=== PATIENT | female | born 1990 | race Caucasian/White ===

== ENCOUNTER → 2020-07-21 11:22 | Outpatient (BNVA) | payer OTHER, SELFPAY | PROVIDERS: Visit Provider Internal Medicine | DX: F11.20 Opioid dependence, uncomplicated (principal) | CPT/HCPCS: 80305 ==

== ENCOUNTER → 2020-08-18 11:50 | Outpatient (BNVA) | payer OTHER, SELFPAY | PROVIDERS: Visit Provider Internal Medicine | DX: Z76.89 Persons encountering health services in other specified circumstances (principal) ==

== ENCOUNTER → 2020-09-15 10:55 | Outpatient (BNVA) | payer OTHER, SELFPAY | PROVIDERS: PCP Nurse Practitioner Family; Visit Provider Internal Medicine | DX: Z76.89 Persons encountering health services in other specified circumstances (principal) ==

== ENCOUNTER → 2020-10-13 11:08 | Outpatient (BNVA) | payer OTHER, SELFPAY | PROVIDERS: PCP Nurse Practitioner Family; Visit Provider Internal Medicine ==

== ENCOUNTER → 2020-11-07 11:31 | Outpatient (BNVA) | payer OTHER, SELFPAY | PROVIDERS: PCP Nurse Practitioner Family; Visit Provider Internal Medicine ==

== ENCOUNTER 2020-12-05 11:01 | Outpatient (REF) | payer OTHER, SELFPAY ==
[2020-12-05 16:10] LABS: Syphilis Screen Nonreactive (Nonreactive)
[2020-12-06 13:16] LABS: CT PCR NOT DETECTED (Not Detect.); NG PCR NOT DETECTED (Not Detect.)
[2020-12-10 07:58] LABS: HIV AB/AG Nonreactive (Nonreactive); HIV Num 1 0.06 S/CO (0.00-0.99)
[2020-12-10 08:21] LABS: ~HepC Num1 0.11 S/CO (0.00-0.79); ~Hepatitis C Antibody Nonreactive (Nonreactive)
== END 2020-12-05 11:02 | disposition home or self-care (01) ==
LOC: HO.LAB 11:01
PROVIDERS: PCP Nurse Practitioner Family; Visit Provider Internal Medicine
DX: F11.99 Opioid use, unspecified with unspecified opioid-induced disorder (principal); Z77.21 Contact with and (suspected) exposure to potentially hazardous body fluids; Z51.81 Encounter for therapeutic drug level monitoring; Z79.899 Other long term (current) drug therapy
CPT/HCPCS: 36415; 80305; 86780; 86803; 87389; 87491; 87591

== ENCOUNTER → 2021-01-02 11:06 | Outpatient (BNVA) | payer OTHER, SELFPAY | PROVIDERS: PCP Nurse Practitioner Family; Visit Provider Internal Medicine | DX: Z51.81 Encounter for therapeutic drug level monitoring (principal); F11.90 Opioid use, unspecified, uncomplicated | CPT/HCPCS: 80305 ==

== ENCOUNTER → 2021-01-30 11:19 | Outpatient (BNVA) | payer OTHER, SELFPAY | PROVIDERS: Visit Provider Internal Medicine | DX: Z51.81 Encounter for therapeutic drug level monitoring (principal) ==

== ENCOUNTER → 2021-02-27 11:13 | Outpatient (BNVA) | payer OTHER, SELFPAY | PROVIDERS: Visit Provider Internal Medicine | DX: Z51.81 Encounter for therapeutic drug level monitoring (principal) | CPT/HCPCS: 80305 ==

== ENCOUNTER → 2021-03-20 11:05 | Outpatient (BNVA) | payer OTHER, SELFPAY | PROVIDERS: Visit Provider Internal Medicine | DX: F11.99 Opioid use, unspecified with unspecified opioid-induced disorder (principal) | CPT/HCPCS: 80305 ==

== ENCOUNTER → 2021-04-17 10:42 | Outpatient (BNVA) | payer OTHER, SELFPAY | PROVIDERS: Visit Provider Internal Medicine | DX: Z51.81 Encounter for therapeutic drug level monitoring (principal) | CPT/HCPCS: 80305 ==

== ENCOUNTER → 2021-05-15 11:38 | Outpatient (BNVA) | payer OTHER, SELFPAY | PROVIDERS: Visit Provider Internal Medicine | DX: F11.20 Opioid dependence, uncomplicated (principal) | CPT/HCPCS: 80305 ==

== ENCOUNTER → 2021-06-12 11:50 | Outpatient (BNVA) | payer OTHER, SELFPAY | PROVIDERS: Visit Provider Internal Medicine | DX: F11.20 Opioid dependence, uncomplicated (principal); Z51.81 Encounter for therapeutic drug level monitoring; Z79.899 Other long term (current) drug therapy | CPT/HCPCS: 80305 ==

== ENCOUNTER → 2021-07-10 11:22 | Outpatient (BNVA) | payer OTHER, SELFPAY | PROVIDERS: Visit Provider Internal Medicine | DX: Z51.81 Encounter for therapeutic drug level monitoring (principal); F11.90 Opioid use, unspecified, uncomplicated | CPT/HCPCS: 80305 ==

== ENCOUNTER → 2021-08-07 14:35 | Outpatient (BNVA) | payer OTHER, SELFPAY | PROVIDERS: Visit Provider Internal Medicine | DX: Z51.81 Encounter for therapeutic drug level monitoring (principal); F11.90 Opioid use, unspecified, uncomplicated | CPT/HCPCS: 80305 ==

== ENCOUNTER → 2021-09-04 12:01 | Outpatient (BNVA) | payer OTHER, SELFPAY | PROVIDERS: Visit Provider Internal Medicine | DX: Z51.81 Encounter for therapeutic drug level monitoring (principal); F11.20 Opioid dependence, uncomplicated | CPT/HCPCS: 80305 ==

== ENCOUNTER → 2021-10-02 12:58 | Outpatient (BNVA) | payer OTHER, SELFPAY | PROVIDERS: Visit Provider Internal Medicine | DX: Z51.81 Encounter for therapeutic drug level monitoring (principal); F11.20 Opioid dependence, uncomplicated | CPT/HCPCS: 80305 ==

== ENCOUNTER → 2021-11-06 13:24 | Outpatient (BNVA) | payer OTHER, SELFPAY | PROVIDERS: Visit Provider Internal Medicine | DX: Z51.81 Encounter for therapeutic drug level monitoring (principal); F11.20 Opioid dependence, uncomplicated | CPT/HCPCS: 80305 ==

== ENCOUNTER → 2021-12-04 11:48 | Outpatient (BNVA) | payer OTHER, SELFPAY | PROVIDERS: Visit Provider Internal Medicine | DX: Z51.81 Encounter for therapeutic drug level monitoring (principal); F11.20 Opioid dependence, uncomplicated | CPT/HCPCS: 80305 ==

== ENCOUNTER → 2022-01-05 14:41 | Outpatient (BNVA) | payer OTHER, SELFPAY | PROVIDERS: Visit Provider Internal Medicine | DX: Z51.81 Encounter for therapeutic drug level monitoring (principal); F11.20 Opioid dependence, uncomplicated | CPT/HCPCS: 80305 ==

== ENCOUNTER → 2022-02-02 14:22 | Outpatient (BNVA) | payer OTHER, SELFPAY | PROVIDERS: Visit Provider Internal Medicine | DX: Z51.81 Encounter for therapeutic drug level monitoring (principal); F11.20 Opioid dependence, uncomplicated | CPT/HCPCS: 80305 ==

== ENCOUNTER → 2022-03-02 14:25 | Outpatient (BNVA) | payer OTHER, SELFPAY | PROVIDERS: Visit Provider Internal Medicine | DX: Z51.81 Encounter for therapeutic drug level monitoring (principal); F11.20 Opioid dependence, uncomplicated | CPT/HCPCS: 80305 ==

== ENCOUNTER 2022-03-02 17:01 | Outpatient (REF) | payer OTHER, SELFPAY ==
[2022-03-07 07:18] LABS: Codeine, Ur 458
[2022-03-07 07:19] LABS: Hydrocodone, Ur NEGATIVE; Hydromorphone, Ur NEGATIVE; Morphine, Ur NEGATIVE; Norhydrocodone, Ur NEGATIVE; Noroxycodone, Ur NEGATIVE; Oxycodone, Ur NEGATIVE; Oxymorphone, Ur NEGATIVE
== END 2022-03-02 17:02 | disposition home or self-care (01) ==
LOC: HO.LNP 17:01
PROVIDERS: Visit Provider Internal Medicine
DX: F11.99 Opioid use, unspecified with unspecified opioid-induced disorder (principal)
CPT/HCPCS: 80364; 80365

== ENCOUNTER → 2022-04-01 14:15 | Outpatient (BNVA) | payer OTHER, SELFPAY | PROVIDERS: PCP Student in an Organized Health Care Education/Training Program; Visit Provider Internal Medicine | DX: Z51.81 Encounter for therapeutic drug level monitoring (principal); F11.20 Opioid dependence, uncomplicated | CPT/HCPCS: 80305 ==

== ENCOUNTER → 2022-09-29 13:33 | Outpatient (BNVA) | payer OTHER, SELFPAY | PROVIDERS: PCP Student in an Organized Health Care Education/Training Program; Visit Provider Nurse Practitioner Psychiatric/Mental Health | DX: F11.20 Opioid dependence, uncomplicated (principal); Z51.81 Encounter for therapeutic drug level monitoring; Z79.899 Other long term (current) drug therapy | CPT/HCPCS: 80305 ==

== ENCOUNTER 2022-10-25 13:30 | Outpatient (REF) | payer OTHER, SELFPAY ==
[2022-10-25 15:06] LABS: Alanine Aminotransferase 27 U/L (0-31); Albumin Level 3.8 g/dL (3.5-5.0); Alkaline Phosphatase 68 U/L (39-117); Aspartate Amino Transferase 25 U/L (5-31); Bilirubin Direct < 0.2 mg/dL (0.0-0.5); Bilirubin Total 0.4 mg/dL (0.0-1.0); Total Protein 6.6 g/dL (6.5-8.0)
== END 2022-10-25 13:31 | disposition home or self-care (01) ==
LOC: HO.LAB 13:30
PROVIDERS: PCP Student in an Organized Health Care Education/Training Program; Visit Provider Nurse Practitioner Psychiatric/Mental Health
DX: F11.20 Opioid dependence, uncomplicated (principal); Z51.81 Encounter for therapeutic drug level monitoring; Z79.899 Other long term (current) drug therapy
CPT/HCPCS: 36415; 80076; 80305

== ENCOUNTER → 2022-11-22 13:50 | Outpatient (BNVA) | payer OTHER, SELFPAY | PROVIDERS: PCP Student in an Organized Health Care Education/Training Program; Visit Provider Nurse Practitioner Psychiatric/Mental Health | DX: Z51.81 Encounter for therapeutic drug level monitoring (principal); F11.99 Opioid use, unspecified with unspecified opioid-induced disorder ==

== ENCOUNTER → 2023-01-17 13:42 | Outpatient (BNVA) | payer OTHER, SELFPAY | PROVIDERS: PCP Student in an Organized Health Care Education/Training Program; Visit Provider Nurse Practitioner Psychiatric/Mental Health | DX: Z13.89 Encounter for screening for other disorder (principal) ==

== ENCOUNTER → 2023-03-14 13:42 | Outpatient (BNVA) | payer OTHER, SELFPAY | PROVIDERS: PCP Student in an Organized Health Care Education/Training Program; Visit Provider Nurse Practitioner Psychiatric/Mental Health | DX: Z51.81 Encounter for therapeutic drug level monitoring (principal); F11.20 Opioid dependence, uncomplicated | CPT/HCPCS: 80305 ==

== ENCOUNTER 2023-04-11 11:17 | Outpatient (AMB) | payer OTHER, SELFPAY ==
[2023-04-11 11:25] VITALS: BP 110/80; PULSE 74; O2SAT 99
--- NOTE | 2023-04-11 11:25 | A.OFFVIS_ITS ---
Intake Vital Signs 04/11/23 11:25 BP 110/80 Blood Pressure Location Lt brachial Position Sitting Pulse 74 Pulse Oximetry (%) 99 Intake Visit Reasons: MAT Visit Allergies No Known Allergies Allergy (Verified 03/14/23 13:45) HPI MAT Visit HPI Details Patient presents for follow-up. Continues to do well with current Suboxone dose. Last prescription picked up on March 20. Denies any questions or concerns at this time. Would like to remain on current Suboxone dose. [facility] Medical History Exposure to blood-borne pathogen Hemorrhoid Opioid use disorder Surgical History H/O breast augmentation Social History Household Members: None Housing: Apartment Alcohol intake: current Alcohol intake frequency: holidays/special occasions only Patient Tobacco Use Status: Current someday Tobacco user Tobacco use type: Cigarette Cigarettes Per Day: 2 e-Cigarette/Vaping Use: Currently Using Review of Systems Const Reports as per HPI and Reports no additional complaints Physical Exam Vital Signs: Last Vital Signs Pulse 74 04/11/23 11:25 BP 110/80 04/11/23 11:25 Pulse Ox 99 04/11/23 11:25 Const General: cooperative, healthy appearing, no acute distress and alert Nutritional Appearance: average body habitus Orientation/consciousness: patient oriented x3 Limitations: no limitations Neuro General: patient oriented x3 Psych Appearance: grossly normal Mental Status: mental status grossly normal Speech and movement: Normal speech and movement present Affect: normal affect Attitude: cooperative Thought process: Normal thought process present Thought content: Normal thought content present Insight: Good insight present (Psych) Judgement: Good judgement present (Psych) Assessment & Plan Assessment & Plan (1) Opioid use disorder: Code(s): F11.99 - Opioid use, unspecified with unspecified opioid-induced disorder Plan: * Continue Suboxone at current dose * Follow-up as scheduled Coding Level of Care Code Est Pt Level 3 (79887) Diagnoses Opioid use disorder F11.99
== END 2023-04-11 11:38 | disposition home or self-care (01) ==
LOC: HO.HCC 11:17
PROVIDERS: PCP Family Medicine; Visit Provider Nurse Practitioner Psychiatric/Mental Health
DX: F11.99 Opioid use, unspecified with unspecified opioid-induced disorder (principal)
CPT/HCPCS: 99213

== ENCOUNTER → 2023-04-11 11:17 | Outpatient (BNVA) | payer OTHER, SELFPAY | PROVIDERS: PCP Family Medicine; Visit Provider Nurse Practitioner Psychiatric/Mental Health | DX: Z51.81 Encounter for therapeutic drug level monitoring (principal) ==

== ENCOUNTER 2023-05-16 11:24 | Outpatient (AMB) | payer OTHER, SELFPAY ==
--- NOTE | 2023-05-16 11:25 | A.OFFVIS_ITS ---
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: No Allergies No Known Allergies Allergy (Verified 05/16/23 11:32) Do you need a note to return to daycare/school/sports/work: No HPI MAT Visit HPI Details Pt presents for OUD treatment follow up Currently being prescribed Suboxone 8mg QD---has been taking dose in the evenings as she finds she forgets less at this time Denies any side effects related to medication No questions or concerns at this time [facility] Medical History Exposure to blood-borne pathogen Hemorrhoid Opioid use disorder Surgical History H/O breast augmentation Social History Household Members: None Housing: Apartment Alcohol intake: current Alcohol intake frequency: holidays/special occasions only Patient Tobacco Use Status: Current someday Tobacco user Tobacco use type: Cigarette Cigarettes Per Day: 2 e-Cigarette/Vaping Use: Currently Using Review of Systems Const Reports as per HPI Physical Exam Vital Signs: Last Vital Signs Pulse 67 05/16/23 11:31 BP 122/84 05/16/23 11:31 Pulse Ox 98 05/16/23 11:31 Oxygen Delivery Method Room Air 05/16/23 11:31 Const General: cooperative, healthy appearing, no acute distress and alert Nutritional Appearance: average body habitus Orientation/consciousness: patient oriented x3 Limitations: no limitations Neuro General: patient oriented x3 Psych Appearance: grossly normal Mental Status: mental status grossly normal Speech and movement: Normal speech and movement present Affect: normal affect Attitude: cooperative Thought process: Normal thought process present Thought content: Normal thought content present Insight: Good insight present (Psych) Judgement: Good judgement present (Psych) Assessment & Plan Assessment & Plan (1) Opioid use disorder: Code(s): F11.99 - Opioid use, unspecified with unspecified opioid-induced disorder Plan: * Continue Suboxone at current dose--refill not yet due * Follow-up as scheduled Coding Level of Care Code Est Pt Level 3 (72902) Diagnoses Opioid use disorder F11.99
[2023-05-16 11:31] VITALS: BP 122/84; PULSE 67; O2SAT 98
== END 2023-05-16 11:50 | disposition home or self-care (01) ==
LOC: HO.HCC 11:24
PROVIDERS: PCP Family Medicine; Visit Provider Nurse Practitioner Psychiatric/Mental Health
DX: F11.99 Opioid use, unspecified with unspecified opioid-induced disorder (principal)
CPT/HCPCS: 99213

== ENCOUNTER → 2023-05-16 11:24 | Outpatient (BNVA) | payer OTHER, SELFPAY | PROVIDERS: PCP Family Medicine; Visit Provider Nurse Practitioner Psychiatric/Mental Health | DX: Z51.81 Encounter for therapeutic drug level monitoring (principal) ==

== ENCOUNTER 2023-07-07 11:20 | Outpatient (AMB) | payer OTHER, SELFPAY ==
--- NOTE | 2023-07-07 11:21 | A.OFFVIS_ITS ---
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 No questions or concerns at this time [facility] Medical History Exposure to blood-borne pathogen Hemorrhoid Opioid use disorder Surgical History H/O breast augmentation Social History Household Members: None Housing: Apartment Alcohol intake: current Alcohol intake frequency: holidays/special occasions only Patient Tobacco Use Status: Current someday Tobacco user Tobacco use type: Cigarette Cigarettes Per Day: 2 e-Cigarette/Vaping Use: Currently Using Review of Systems Const Reports as per HPI and Reports no additional complaints Physical Exam Vital Signs: Last Vital Signs Pulse 85 07/07/23 11:24 BP 124/72 07/07/23 11:24 Pulse Ox 97 07/07/23 11:24 Oxygen Delivery Method Room Air 07/07/23 11:24 Const General: cooperative, healthy appearing, no acute distress and alert Nutritional Appearance: average body habitus Orientation/consciousness: patient oriented x3 Limitations: no limitations Neuro General: patient oriented x3 Psych Appearance: grossly normal Mental Status: mental status grossly normal Speech and movement: Normal speech and movement present Affect: normal affect Attitude: cooperative Thought process: Normal thought process present Thought content: Normal thought content present Insight: Good insight present (Psych) Judgement: Good judgement present (Psych) Assessment & Plan Assessment & Plan (1) Opioid use disorder: Code(s): F11.99 - Opioid use, unspecified with unspecified opioid-induced disorder Plan: * Continue Suboxone at current dose * Follow-up as scheduled (2 months) Medications: Refilled buprenorphine-naloxone 8-2 mg 1 film sublingual DAILY 30 ea 1RF Belem Pineda, ROCHELLE buprenorphine-naloxone 8-2 mg 1 film sublingual DAILY 30 ea 1RF Sue Powell NP Coding Level of Care Code Est Pt Level 3 (06415) Diagnoses Opioid use disorder F11.99
[2023-07-07 11:24] VITALS: BP 124/72; PULSE 85; O2SAT 97
== END 2023-07-07 11:44 | disposition home or self-care (01) ==
PROVIDERS: PCP Family Medicine; Visit Provider Nurse Practitioner Psychiatric/Mental Health
DX: F11.99 Opioid use, unspecified with unspecified opioid-induced disorder (principal)
CPT/HCPCS: 99213

== ENCOUNTER → 2023-07-07 11:20 | Outpatient (BNVA) | payer OTHER, SELFPAY | PROVIDERS: PCP Family Medicine; Visit Provider Nurse Practitioner Psychiatric/Mental Health | DX: Z51.81 Encounter for therapeutic drug level monitoring (principal); F11.99 Opioid use, unspecified with unspecified opioid-induced disorder ==

== ENCOUNTER 2023-09-01 11:09 | Outpatient (AMB) | payer OTHER, SELFPAY ==
--- NOTE | 2023-09-01 11:11 | MHC.AM.SUB ---
Intake Vital Signs 09/01/23 11:16 BP 118/66 Blood Pressure Location Lt radial Position Sitting Pulse 58 Pulse Source Pulse Oximeter Pulse Oximetry (%) 99 Oxygen Delivery Method Room Air Intake Visit Reasons: MAT Visit Intake Note: the patient presents for a mat visit On Call Pharmacy Technician Required: No Allergies No Known Allergies Allergy (Verified 09/01/23 11:17) Medication List - Last Reconciled 09/01/23 by Belem Pineda CNP acyclovir 400 mg PO BID buprenorphine-naloxone 8-2 mg 1 film sublingual DAILY estradiol cypionate 5 mg IM QWEEK polyethylene glycol 3350 (Miralax) 17 grams PO DAILY sertraline 150 mg PO DAILY spironolactone 200 mg PO BID Do you need a note to return to daycare/school/sports/work: No HPI MAT Visit HPI Details Patient presents for treatment follow up Currently prescribed Suboxone 8mg QD Last PCP appt over a year ago Doing well with recovery. Discussed extended periods of time btwn picking up her prescription. She reports having a large amount of left over suboxone that she has accrued over the years. Confirmed she is taking 1 8mg film daily. [facility] Medical History Exposure to blood-borne pathogen Hemorrhoid Opioid use disorder Surgical History H/O breast augmentation Social History Household Members: None Housing: Apartment Alcohol intake: current Alcohol intake frequency: holidays/special occasions only Patient Tobacco Use Status: Current someday Tobacco user Tobacco use type: Cigarette Cigarettes Per Day: 2 e-Cigarette/Vaping Use: Currently Using Review of Systems Const Reports as per HPI Physical Exam Vital Signs: Last Vital Signs Pulse 58 09/01/23 11:16 BP 118/66 09/01/23 11:16 Pulse Ox 99 09/01/23 11:16 Oxygen Delivery Method Room Air 09/01/23 11:16 Const General: cooperative, healthy appearing, no acute distress and alert Nutritional Appearance: average body habitus Orientation/consciousness: patient oriented x3 Limitations: no limitations Neuro General: patient oriented x3 Psych Appearance: grossly normal Mental Status: mental status grossly normal Speech and movement: Normal speech and movement present Affect: normal affect Attitude: cooperative Thought process: Normal thought process present Thought content: Normal thought content present Insight: Good insight present (Psych) Judgement: Good judgement present (Psych) Assessment & Plan Assessment & Plan (1) Opioid use disorder: Code(s): F11.99 - Opioid use, unspecified with unspecified opioid-induced disorder Plan: Continue Suboxone at current dose Follow-up as scheduled (2 months) Coding Level of Care Code Est Pt Level 3 (11819) Diagnoses Opioid use disorder F11.99
[2023-09-01 11:16] VITALS: BP 118/66; PULSE 58; O2SAT 99
== END 2023-09-01 11:47 | disposition home or self-care (01) ==
PROVIDERS: PCP Family Medicine; Visit Provider Nurse Practitioner Psychiatric/Mental Health
DX: F11.99 Opioid use, unspecified with unspecified opioid-induced disorder (principal)
CPT/HCPCS: 99213

== ENCOUNTER → 2023-09-01 11:09 | Outpatient (BNVA) | payer OTHER, SELFPAY | PROVIDERS: PCP Family Medicine; Visit Provider Nurse Practitioner Psychiatric/Mental Health | DX: Z51.81 Encounter for therapeutic drug level monitoring (principal); F11.99 Opioid use, unspecified with unspecified opioid-induced disorder ==

== ENCOUNTER 2023-10-27 11:17 | Outpatient (AMB) | payer OTHER, SELFPAY ==
[2023-10-27 11:27] VITALS: BP 100/60; PULSE 42; O2SAT 96
--- NOTE | 2023-10-27 11:27 | MHC.AM.SUB ---
Intake Vital Signs 10/27/23 11:27 BP 100/60 Blood Pressure Location Rt radial Position Sitting Pulse 42 L Pulse Source Palpation Pulse Oximetry (%) 96 Oxygen Delivery Method Room Air Intake Visit Reasons: MAT Visit Allergies No Known Allergies Allergy (Verified 09/01/23 11:17) HPI MAT Visit HPI Details Patient presents for follow up Currently prescribed Suboxone 8mg QD In recovery for 5 years Discussing recent events in her life that she found challenging still engaged with therapist [facility] Medical History Exposure to blood-borne pathogen Hemorrhoid Opioid use disorder Surgical History H/O breast augmentation Social History Household Members: None Housing: Apartment Alcohol intake: current Alcohol intake frequency: holidays/special occasions only Patient Tobacco Use Status: Current someday Tobacco user Tobacco use type: Cigarette Cigarettes Per Day: 2 e-Cigarette/Vaping Use: Currently Using Review of Systems Const Reports as per HPI Physical Exam Vital Signs: Last Vital Signs Pulse 42 L 10/27/23 11:27 BP 100/60 10/27/23 11:27 Pulse Ox 96 10/27/23 11:27 Oxygen Delivery Method Room Air 10/27/23 11:27 Const General: cooperative, healthy appearing, no acute distress and alert Nutritional Appearance: average body habitus Orientation/consciousness: patient oriented x3 Limitations: no limitations Neuro General: patient oriented x3 Psych Appearance: grossly normal Mental Status: mental status grossly normal Speech and movement: Normal speech and movement present Affect: normal affect Attitude: cooperative Thought process: Normal thought process present Thought content: Normal thought content present Insight: Good insight present (Psych) Judgement: Good judgement present (Psych) Assessment & Plan Assessment & Plan (1) Opioid use disorder: Code(s): F11.99 - Opioid use, unspecified with unspecified opioid-induced disorder Plan: Continue Suboxone at current dose Follow-up as scheduled (2 months) Coding Level of Care Code Est Pt Level 3 (43613) Diagnoses Opioid use disorder F11.99
== END 2023-10-27 11:51 | disposition home or self-care (01) ==
PROVIDERS: PCP Family Medicine; Visit Provider Nurse Practitioner Psychiatric/Mental Health
DX: F11.99 Opioid use, unspecified with unspecified opioid-induced disorder (principal)
CPT/HCPCS: 99213

== ENCOUNTER → 2023-10-27 11:17 | Outpatient (BNVA) | payer OTHER, SELFPAY | PROVIDERS: PCP Family Medicine; Visit Provider Nurse Practitioner Psychiatric/Mental Health | DX: Z51.81 Encounter for therapeutic drug level monitoring (principal); F11.99 Opioid use, unspecified with unspecified opioid-induced disorder ==

== ENCOUNTER 2023-12-26 14:39 | Outpatient (AMB) | payer OTHER, SELFPAY ==
--- NOTE | 2023-12-26 14:40 | A.OFFVISCC_ITS ---
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 Required: No Allergies No Known Allergies Allergy (Verified 12/26/23 14:46) Do you need a note to return to daycare/school/sports/work: No HPI MAT Visit HPI Details Patient presents for follow up Currently prescribed Suboxone 8mg daily requesting to move back to [facility] as she regularly forgets to request refills reporting that she will be moving forward with moving back to [place] in the fall when her lease ends Sharing that she feels like she has lost her support network here in [place] Will be going to [facility] [place]--requesting assistance with finding provider there Discussed increased stressors and decreased supports here, patient does not feel recurrence is an issue as she has strengthened coping strategies and still sees therapist and communicates with family more regularly. [facility] Medical History Exposure to blood-borne pathogen Hemorrhoid Opioid use disorder Surgical History H/O breast augmentation Social History Household Members: None Housing: Apartment Alcohol intake: current Alcohol intake frequency: holidays/special occasions only Patient Tobacco Use Status: Current someday Tobacco user Tobacco use type: Cigarette Cigarettes Per Day: 2 e-Cigarette/Vaping Use: Currently Using Review of Systems Const Reports as per HPI Physical Exam Vital Signs: Last Vital Signs Pulse 90 12/26/23 14:45 BP 122/78 12/26/23 14:45 Pulse Ox 94 12/26/23 14:45 Oxygen Delivery Method Room Air 12/26/23 14:45 Const General: cooperative, healthy appearing, no acute distress and alert Nutritional Appearance: average body habitus Orientation/consciousness: patient oriented x3 Limitations: no limitations Neuro General: patient oriented x3 Psych Appearance: grossly normal Mental Status: mental status grossly normal Speech and movement: Normal speech and movement present Affect: normal affect Attitude: cooperative Thought process: Normal thought process present Thought content: Normal thought content present Insight: Good insight present (Psych) Judgement: Good judgement present (Psych) Assessment & Plan Assessment & Plan (1) Opioid use disorder: Code(s): F11.99 - Opioid use, unspecified with unspecified opioid-induced disorder Plan: * Continue Suboxone at current dose * Follow-up as 1 month Coding Level of Care Code Est Pt Level 3 (25471) Diagnoses Opioid use disorder F11.99
[2023-12-26 14:45] VITALS: BP 122/78; PULSE 90; O2SAT 94
== END 2023-12-26 15:04 | disposition home or self-care (01) ==
PROVIDERS: PCP Family Medicine; Visit Provider Nurse Practitioner Psychiatric/Mental Health
DX: F11.99 Opioid use, unspecified with unspecified opioid-induced disorder (principal)
CPT/HCPCS: 99213

== ENCOUNTER → 2023-12-26 14:39 | Outpatient (BNVA) | payer OTHER, SELFPAY | PROVIDERS: PCP Family Medicine; Visit Provider Nurse Practitioner Psychiatric/Mental Health | DX: Z51.81 Encounter for therapeutic drug level monitoring (principal); F11.99 Opioid use, unspecified with unspecified opioid-induced disorder ==

== ENCOUNTER 2024-01-25 11:05 | Outpatient (AMB) | payer OTHER, SELFPAY ==
[2024-01-25 11:09] VITALS: BP 132/80; PULSE 79; O2SAT 99
--- NOTE | 2024-01-25 11:09 | A.OFFVISCC_ITS ---
Vital Signs 01/25/24 11:09 BP 132/80 Blood Pressure Location Lt brachial Position Sitting Pulse 79 Pulse Source Pulse Oximeter Pulse Oximetry (%) 99 Oxygen Delivery Method Room Air Intake Visit Reasons: MAT Visit Allergies No Known Allergies Allergy (Verified 12/26/23 14:46) HPI HPI MAT Visit: Details: Patient presents for follow up Challenging week, learned that ex partner by suicide last month Seeing therapist weekly again No issues related to recovery presented patient with listing of providers in [place] near where she will be residing --encouraged her to call and inquire about process for transitioning care [facility] Medical History (Updated 01/31/24 @ 13:51 by Belem Pineda CNP) Hemorrhoid Exposure to blood-borne pathogen Opioid use disorder Surgical History H/O breast augmentation Social History Household Members: None Housing: Apartment Alcohol intake: current Alcohol intake frequency: holidays/special occasions only Patient Tobacco Use Status: Current someday Tobacco user Tobacco use type: Cigarette Cigarettes Per Day: 2 e-Cigarette/Vaping Use: Currently Using Review of Systems Const Reports as per HPI and Reports no additional complaints Physical Exam Vital Signs: Last Vital Signs Pulse 79 01/25/24 11:09 BP 132/80 01/25/24 11:09 Pulse Ox 99 01/25/24 11:09 Oxygen Delivery Method Room Air 01/25/24 11:09 Const General: cooperative, healthy appearing, no acute distress and alert Nutritional Appearance: average body habitus Orientation/consciousness: patient oriented x3 Limitations: no limitations Neuro General: patient oriented x3 Psych Appearance: grossly normal Mental Status: mental status grossly normal Speech and movement: Normal speech and movement present Affect: normal affect Attitude: cooperative Thought process: Normal thought process present Thought content: Normal thought content present Insight: Good insight present (Psych) Judgement: Good judgement present (Psych) Assessment & Plan Assessment & Plan (1) Opioid use disorder, moderate, in sustained remission: Code(s): F11.21 - Opioid dependence, in remission Category: Medical Plan: * refilled medication * follow up 4 weeks Medications: Refilled buprenorphine-naloxone 8-2 mg 1 film sublingual DAILY 30 ea 0RF
== END 2024-01-25 11:34 | disposition home or self-care (01) ==
PROVIDERS: PCP Family Medicine; Visit Provider Nurse Practitioner Psychiatric/Mental Health
DX: F11.21 Opioid dependence, in remission (principal)
CPT/HCPCS: 99213

== ENCOUNTER → 2024-01-25 11:05 | Outpatient (BNVA) | payer OTHER, SELFPAY | PROVIDERS: PCP Family Medicine; Visit Provider Nurse Practitioner Psychiatric/Mental Health | DX: Z51.81 Encounter for therapeutic drug level monitoring (principal); F11.99 Opioid use, unspecified with unspecified opioid-induced disorder ==

== ENCOUNTER 2024-02-22 10:45 | Outpatient (AMB) | payer OTHER, SELFPAY ==
[2024-02-22 10:46] VITALS: BP 138/86; PULSE 95; O2SAT 97
--- NOTE | 2024-02-22 10:46 | A.OFFVISCC_ITS ---
Vital Signs 02/22/24 10:46 BP 138/86 Blood Pressure Location Rt brachial Position Sitting Pulse 95 Pulse Source Pulse Oximeter Pulse Oximetry (%) 97 Oxygen Delivery Method Room Air Intake Visit Reasons: MAT Visit Allergies No Known Allergies Allergy (Verified 12/26/23 14:46) HPI HPI MAT Visit: Details: Patient presents for follow up tolerating current suboxone dose discussing plans to move and potential delay in move as she is concerned about her cat and traveling discussed improving relationship with her mother and how she is navigating boundary setting no questions or concerns at this time [facility] Medical History (Updated 01/31/24 @ 13:51 by Belem Pineda CNP) Hemorrhoid Exposure to blood-borne pathogen Opioid use disorder Surgical History H/O breast augmentation Social History Household Members: None Housing: Apartment Alcohol intake: current Alcohol intake frequency: holidays/special occasions only Patient Tobacco Use Status: Current someday Tobacco user Tobacco use type: Cigarette Cigarettes Per Day: 2 e-Cigarette/Vaping Use: Currently Using Review of Systems Const Reports as per HPI and Reports no additional complaints Physical Exam Vital Signs: Last Vital Signs Pulse 95 02/22/24 10:46 BP 138/86 02/22/24 10:46 Pulse Ox 97 02/22/24 10:46 Oxygen Delivery Method Room Air 02/22/24 10:46 Const General: cooperative, healthy appearing, no acute distress and alert Nutritional Appearance: average body habitus Orientation/consciousness: patient oriented x3 Limitations: no limitations Neuro General: patient oriented x3 Psych Appearance: grossly normal Mental Status: mental status grossly normal Speech and movement: Normal speech and movement present Affect: normal affect Attitude: cooperative Thought process: Normal thought process present Thought content: Normal thought content present Insight: Good insight present (Psych) Judgement: Good judgement present (Psych) Assessment & Plan Assessment & Plan (1) Opioid use disorder, moderate, in sustained remission: Code(s): F11.21 - Opioid dependence, in remission Category: Medical Plan: * refilled medication * follow up 4 weeks
== END 2024-02-22 11:33 | disposition home or self-care (01) ==
PROVIDERS: PCP Family Medicine; Visit Provider Nurse Practitioner Psychiatric/Mental Health
DX: F11.21 Opioid dependence, in remission (principal)
CPT/HCPCS: 99213

== ENCOUNTER → 2024-02-22 10:45 | Outpatient (BNVA) | payer OTHER, SELFPAY | PROVIDERS: PCP Family Medicine; Visit Provider Nurse Practitioner Psychiatric/Mental Health | DX: Z51.81 Encounter for therapeutic drug level monitoring (principal); F11.99 Opioid use, unspecified with unspecified opioid-induced disorder ==

== ENCOUNTER 2024-03-21 10:37 | Outpatient (AMB) | payer OTHER, SELFPAY ==
--- NOTE | 2024-03-21 11:16 | A.OFFVISCC_ITS ---
Intake Visit Reasons: MAT Visit Allergies No Known Allergies Allergy (Verified 12/26/23 14:46) HPI HPI MAT Visit: Details: Patient presents for follow up Currently prescribed Suboxone 8mg daily Had some issues getting her prescription last month Going to [place] for 2 weeks in March Getting excited and nervous about moving forward with the move [facility] Medical History (Updated 01/31/24 @ 13:51 by Belem Pineda CNP) Hemorrhoid Exposure to blood-borne pathogen Opioid use disorder Surgical History H/O breast augmentation Social History Household Members: None Housing: Apartment Alcohol intake: current Alcohol intake frequency: holidays/special occasions only Patient Tobacco Use Status: Current someday Tobacco user Tobacco use type: Cigarette Cigarettes Per Day: 2 e-Cigarette/Vaping Use: Currently Using Review of Systems Const Reports as per HPI Physical Exam Const General: cooperative, healthy appearing, no acute distress and alert Nutritional Appearance: average body habitus Orientation/consciousness: patient oriented x3 Limitations: no limitations Neuro General: patient oriented x3 Psych Appearance: grossly normal Mental Status: mental status grossly normal Speech and movement: Normal speech and movement present Affect: normal affect Attitude: cooperative Thought process: Normal thought process present Thought content: Normal thought content present Insight: Good insight present (Psych) Judgement: Good judgement present (Psych) Assessment & Plan Assessment & Plan (1) Opioid use disorder, moderate, in sustained remission: Code(s): F11.21 - Opioid dependence, in remission Category: Medical Plan: * continue suboxone at current dose * follow up one month Medications: Refilled buprenorphine-naloxone 8-2 mg 1 film sublingual DAILY 30 ea 0RF
== END 2024-03-21 10:59 | disposition home or self-care (01) ==
PROVIDERS: PCP Family Medicine; Visit Provider Nurse Practitioner Psychiatric/Mental Health
DX: F11.21 Opioid dependence, in remission (principal)
CPT/HCPCS: 99213

== ENCOUNTER → 2024-03-21 10:37 | Outpatient (BNVA) | payer OTHER, SELFPAY | PROVIDERS: PCP Family Medicine; Visit Provider Nurse Practitioner Psychiatric/Mental Health | DX: Z51.81 Encounter for therapeutic drug level monitoring (principal); F11.99 Opioid use, unspecified with unspecified opioid-induced disorder ==

== ENCOUNTER 2024-05-30 13:43 | Outpatient (AMB) | payer OTHER, SELFPAY ==
--- NOTE | 2024-05-30 13:53 | MHC.AM.SUB ---
Intake Visit Reasons: MAT Visit Allergies No Known Allergies Allergy (Verified 12/26/23 14:46) HPI HPI MAT Visit: Details: Patient presents for follow up Currently prescribed Suboxone 8mg QD Recently visited [place] No issues related to recovery [facility] Medical History (Updated 01/31/24 @ 13:51 by Belem Pineda CNP) Hemorrhoid Exposure to blood-borne pathogen Opioid use disorder Surgical History H/O breast augmentation Social History Household Members: None Housing: Apartment Alcohol intake: current Alcohol intake frequency: holidays/special occasions only Patient Tobacco Use Status: Current someday Tobacco user Tobacco use type: Cigarette Cigarettes Per Day: 2 e-Cigarette/Vaping Use: Currently Using Review of Systems Const Reports as per HPI and Reports no additional complaints Physical Exam Const General: cooperative, healthy appearing, no acute distress and alert Nutritional Appearance: average body habitus Orientation/consciousness: patient oriented x3 Limitations: no limitations Neuro General: patient oriented x3 Psych Appearance: grossly normal Mental Status: mental status grossly normal Speech and movement: Normal speech and movement present Affect: normal affect Attitude: cooperative Thought process: Normal thought process present Thought content: Normal thought content present Insight: Good insight present (Psych) Judgement: Good judgement present (Psych) Assessment & Plan Assessment & Plan (1) Opioid use disorder, moderate, in sustained remission: Code(s): F11.21 - Opioid dependence, in remission Category: Medical Plan: continue suboxone at current dose follow up one month Medications: Refilled buprenorphine-naloxone 8-2 mg 1 film sublingual DAILY 30 ea 0RF
== END 2024-05-30 14:06 | disposition home or self-care (01) ==
PROVIDERS: PCP Family Medicine; Visit Provider Nurse Practitioner Psychiatric/Mental Health
DX: F11.21 Opioid dependence, in remission (principal)
CPT/HCPCS: 99213

== ENCOUNTER → 2024-05-30 13:43 | Outpatient (BNVA) | payer OTHER, SELFPAY | PROVIDERS: PCP Family Medicine; Visit Provider Nurse Practitioner Psychiatric/Mental Health | DX: Z51.81 Encounter for therapeutic drug level monitoring (principal); F11.99 Opioid use, unspecified with unspecified opioid-induced disorder ==

== ENCOUNTER 2024-06-27 12:58 | Outpatient (AMB) | payer OTHER, SELFPAY ==
--- NOTE | 2024-06-27 13:05 | MHC.AM.SUB ---
Intake Visit Reasons: MAT Visit Allergies No Known Allergies Allergy (Verified 12/26/23 14:46) HPI HPI MAT Visit: Details: Patient presents for follow up Denies any challenges related to recovery recently started Lamotrigine at 100mg --3 weeks at this dose feels like symptoms have improved some [facility] Medical History (Updated 01/31/24 @ 13:51 by Belem Pineda, ROCHELLE) Hemorrhoid Exposure to blood-borne pathogen Opioid use disorder Surgical History H/O breast augmentation Social History Household Members: None Housing: Apartment Alcohol intake: current Alcohol intake frequency: holidays/special occasions only Patient Tobacco Use Status: Current someday Tobacco user Tobacco use type: Cigarette Cigarettes Per Day: 2 e-Cigarette/Vaping Use: Currently Using Review of Systems Const Reports as per HPI and Reports no additional complaints Physical Exam Const General: cooperative, healthy appearing, no acute distress and alert Nutritional Appearance: average body habitus Orientation/consciousness: patient oriented x3 Limitations: no limitations Neuro General: patient oriented x3 Psych Appearance: grossly normal Mental Status: mental status grossly normal Speech and movement: Normal speech and movement present Affect: normal affect Attitude: cooperative Thought process: Normal thought process present Thought content: Normal thought content present Insight: Good insight present (Psych) Judgement: Good judgement present (Psych) Assessment & Plan Assessment & Plan (1) Opioid use disorder, moderate, in sustained remission: Code(s): F11.21 - Opioid dependence, in remission Category: Medical Plan: continue suboxone at current dose follow up one month Medications: Refilled buprenorphine-naloxone 8-2 mg 1 film sublingual DAILY 30 ea 1RF
== END 2024-06-27 13:39 | disposition home or self-care (01) ==
PROVIDERS: PCP Family Medicine; Visit Provider Nurse Practitioner Psychiatric/Mental Health
DX: F11.21 Opioid dependence, in remission (principal)
CPT/HCPCS: 99213

== ENCOUNTER → 2024-06-27 12:58 | Outpatient (BNVA) | payer OTHER, SELFPAY | PROVIDERS: PCP Family Medicine; Visit Provider Nurse Practitioner Psychiatric/Mental Health | DX: Z51.81 Encounter for therapeutic drug level monitoring (principal); F11.99 Opioid use, unspecified with unspecified opioid-induced disorder ==

== ENCOUNTER 2024-08-08 13:34 | Outpatient (AMB) | payer OTHER, SELFPAY ==
--- NOTE | 2024-08-08 13:45 | A.OFFVISCC_ITS ---
Intake Visit Reasons: MAT Visit Allergies No Known Allergies Allergy (Verified 12/26/23 14:46) HPI HPI MAT Visit: Details: Patient presents for follow up Currently prescribed suboxone 8mg daily reached out old friend group and has been spending more time with them bright affect unfortunately a friend of hers passed, but she feels well supported no issues related to recovery and suboxone tolerating current dose Review of Systems Const Reports as per HPI Physical Exam Const General: cooperative, healthy appearing, no acute distress and alert Nutritional Appearance: average body habitus Orientation/consciousness: patient oriented x3 Limitations: no limitations Neuro General: patient oriented x3 Psych Appearance: grossly normal Mental Status: mental status grossly normal Speech and movement: Normal speech and movement present Affect: normal affect Attitude: cooperative Thought process: Normal thought process present Thought content: Normal thought content present Insight: Good insight present (Psych) Judgement: Good judgement present (Psych) Assessment & Plan Assessment & Plan (1) Opioid use disorder, moderate, in sustained remission: Code(s): F11.21 - Opioid dependence, in remission Category: Medical Plan: * continue suboxone at current dose * follow up 2 months [facility] Medical History (Updated 01/31/24 @ 13:51 by Belem Pineda CNP) Hemorrhoid Exposure to blood-borne pathogen Opioid use disorder Surgical History H/O breast augmentation Social History Household Members: None Housing: Apartment Alcohol intake: current Alcohol intake frequency: holidays/special occasions only Patient Tobacco Use Status: Current someday Tobacco user Tobacco use type: Cigarette Cigarettes Per Day: 2 e-Cigarette/Vaping Use: Currently Using
== END 2024-08-08 14:04 | disposition home or self-care (01) ==
LOC: HO.HCC 13:34
PROVIDERS: PCP Family Medicine; Visit Provider Nurse Practitioner Psychiatric/Mental Health
DX: F11.21 Opioid dependence, in remission (principal)
CPT/HCPCS: 99213

== ENCOUNTER → 2024-08-08 13:34 | Outpatient (BNVA) | payer OTHER, SELFPAY | PROVIDERS: PCP Family Medicine; Visit Provider Nurse Practitioner Psychiatric/Mental Health | DX: Z51.81 Encounter for therapeutic drug level monitoring (principal); F11.99 Opioid use, unspecified with unspecified opioid-induced disorder ==

== ENCOUNTER 2024-10-08 13:48 | Outpatient (AMB) | payer OTHER, SELFPAY ==
--- NOTE | 2024-10-08 14:16 | A.OFFVISCC_ITS ---
Intake Visit Reasons: MAT visit Allergies No Known Allergies Allergy (Verified 12/26/23 14:46) HPI HPI MAT visit: Details: Patient presents for follow up Currently prescribed Suboxone 8mg daily tolerating medication --denies any issues related to recovery GF recently had biopsy of thyroid feels good about being able to be supportive to her Review of Systems Const Reports as per HPI and Reports no additional complaints Physical Exam Const General: cooperative, healthy appearing and well groomed Nutritional Appearance: average body habitus Orientation/consciousness: patient oriented x3 Limitations: no limitations Neuro General: patient oriented x3 Psych Appearance: well kempt Speech and movement: Clear speech present Affect: normal affect Attitude: cooperative Thought process: Normal thought process present Thought content: Normal thought content present Insight: Good insight present (Psych) Judgement: Good judgement present (Psych) [facility] Medical History (Updated 01/31/24 @ 13:51 by Belem Pineda CNP) Hemorrhoid Exposure to blood-borne pathogen Opioid use disorder Surgical History H/O breast augmentation Social History Household Members: None Housing: Apartment Alcohol intake: current Alcohol intake frequency: holidays/special occasions only Patient Tobacco Use Status: Current someday Tobacco user Tobacco use type: Cigarette Cigarettes Per Day: 2 e-Cigarette/Vaping Use: Currently Using Assessment & Plan Assessment & Plan (1) Opioid use disorder, moderate, in sustained remission: Code(s): F11.21 - Opioid dependence, in remission Category: Medical Plan: * continue suboxone at current dose * follow up 2 months
== END 2024-10-08 15:19 | disposition home or self-care (01) ==
PROVIDERS: PCP Family Medicine; Visit Provider Nurse Practitioner Psychiatric/Mental Health
DX: F11.21 Opioid dependence, in remission (principal)
CPT/HCPCS: 99213

== ENCOUNTER 2024-12-05 13:31 | Outpatient (AMB) | payer OTHER, SELFPAY ==
--- NOTE | 2024-12-05 13:37 | A.OFFVISCC_ITS ---
Intake Visit Reasons: MAT Allergies No Known Allergies Allergy (Verified 12/26/23 14:46) HPI HPI MAT: Details: Patient presents for follow up Currently prescribed Suboxone 8mg daily Tolerating current dose Sleep is okay appetite not an issue Has decided to move in with her girlfriend GF biopsy came back benign Review of Systems Const Reports as per HPI and Reports no additional complaints Physical Exam Const General: cooperative, healthy appearing and well groomed Nutritional Appearance: average body habitus Orientation/consciousness: patient oriented x3 Limitations: no limitations Neuro General: patient oriented x3 Psych Appearance: well kempt Speech and movement: Clear speech present Affect: normal affect Attitude: cooperative Thought process: Normal thought process present Thought content: Normal thought content present Insight: Good insight present (Psych) Judgement: Good judgement present (Psych) [facility] Medical History (Updated 01/31/24 @ 13:51 by Belem Pineda CNP) Hemorrhoid Exposure to blood-borne pathogen Opioid use disorder Surgical History H/O breast augmentation Social History Household Members: None Housing: Apartment Alcohol intake: current Alcohol intake frequency: holidays/special occasions only Patient Tobacco Use Status: Current someday Tobacco user Tobacco use type: Cigarette Cigarettes Per Day: 2 e-Cigarette/Vaping Use: Currently Using Assessment & Plan Assessment & Plan (1) Opioid use disorder, moderate, in sustained remission: Code(s): F11.21 - Opioid dependence, in remission Category: Medical Plan: * continue suboxone at current dose * follow up 2 months
== END 2024-12-05 13:53 | disposition home or self-care (01) ==
LOC: HO.HCC 13:32
PROVIDERS: PCP Family Medicine; Visit Provider Nurse Practitioner Psychiatric/Mental Health
DX: F11.21 Opioid dependence, in remission (principal)
CPT/HCPCS: 99213

== ENCOUNTER → 2024-12-05 13:31 | Outpatient (BNVA) | payer OTHER, SELFPAY | PROVIDERS: PCP Family Medicine; Visit Provider Nurse Practitioner Psychiatric/Mental Health ==

== ENCOUNTER 2025-01-30 14:59 | Outpatient (AMB) | payer OTHER, SELFPAY ==
--- NOTE | 2025-01-30 15:16 | MHC.OFFVIS ---
Vital Signs 01/30/25 15:21 Height 5 ft 10 in Weight 134 lb BMI 19.2 Pulse 73 Pulse Source Pulse Oximeter Pulse Oximetry (%) 99 Oxygen Delivery Method Room Air Intake Visit Reasons: MAT Allergies No Known Allergies Allergy (Verified 01/30/25 15:21) HPI HPI MAT: Details: She is doing well [facility] Medical History Hemorrhoid Exposure to blood-borne pathogen Opioid use disorder Surgical History H/O breast augmentation Social History Household Members: None Housing: Apartment Alcohol intake: current Alcohol intake frequency: holidays/special occasions only Patient Tobacco Use Status: Current someday Tobacco user Tobacco use type: Cigarette Cigarettes Per Day: 2 e-Cigarette/Vaping Use: Currently Using Review of Systems Const All systems reviewed & are unremarkable except as noted in HPI and below Physical Exam Vital Signs: Last Vital Signs Pulse 73 01/30/25 15:21 Pulse Ox 99 01/30/25 15:21 Oxygen Delivery Method Room Air 01/30/25 15:21 BMI result Body Mass Index 19.2 Const General: cooperative Results AMB 14 Panel Urine Drug Screen Urine Marijuana (THC) Negative Last Edit by Shemar Thapa CMA on 01/30/25 15:22 Urine Cocaine Negative Last Edit by Shemar Thapa CMA on 01/30/25 15:22 Urine Morphine Negative Last Edit by Shemar Thapa CMA on 01/30/25 15:22 Urine Methamphetamine Negative Last Edit by Shemar Thapa CMA on 01/30/25 15:22 Urine Amphetamine Negative Last Edit by Shemar Thapa CMA on 01/30/25 15:22 Urine Benzodiazepine Negative Last Edit by Shemar Thapa CMA on 01/30/25 15:22 Urine Barbiturates Negative Last Edit by Shemar Thapa CMA on 01/30/25 15:22 Urine Methadone Negative Last Edit by Shemar Thapa CMA on 01/30/25 15:22 Urine Buprenorphine Positive Last Edit by Shemar Thapa CMA on 01/30/25 15:22 Urine Tricyclic Antidepressant Negative Last Edit by Shemar Thapa CMA on 01/30/25 15:22 Urine MDMA Negative Last Edit by Shemar Thapa CMA on 01/30/25 15:22 Urine Oxycodone Negative Last Edit by Shemar Thapa CMA on 01/30/25 15:22 Urine Phencyclidine Negative Last Edit by Shemar Thapa CMA on 01/30/25 15:22 Urine Propoxyphene Negative Last Edit by Shemar Thapa CMA on 01/30/25 15:22 Results Reviewed Results Reviewed: Laboratory Last Values POC Urine Buprenorphine Positive 01/30/25 15:20 POC Urine Morphine Negative 01/30/25 15:20 POC Urine Oxycodone Negative 01/30/25 15:20 POC Urine Methadone Negative 01/30/25 15:20 POC Urine Propoxyphene Negative 01/30/25 15:20 POC Urine Barbiturates Negative 01/30/25 15:20 POC U Tricyclic Antidpr Negative 01/30/25 15:20 POC Urine PCP Negative 01/30/25 15:20 POC Ur Amphetamines Negative 01/30/25 15:20 POC Ur Methamphetamine Negative 01/30/25 15:20 POC Urine MDMA Negative 01/30/25 15:20 POC Ur Benzodiazepine Negative 01/30/25 15:20 POC Urine Cocaine Negative 01/30/25 15:20 POC Ur Marijuana (THC) Negative 01/30/25 15:20 Assessment & Plan Assessment & Plan (1) Opioid use disorder, moderate, in sustained remission: Comment: She is doing well. Code(s): F11.21 - Opioid dependence, in remission Category: Medical Plan: Continue current plan. See as scheduled. (2) Exposure to blood-borne pathogen: Code(s): Z77.21 - Contact with and (suspected) exposure to potentially hazardous body fluids Category: Medical Plan na Orders: Orders AMB 14 Panel Urine Drug Screen 01/30/25 Z51.81 - Encounter for therapeutic drug level monitoring Medications: New buprenorphine-naloxone 8-2 mg (Suboxone) 1 film sublingual DAILY 30 ea 1RF 30 days Coding Level of Care Code Est Pt Level 3 (68872) Diagnoses Opioid use disorder, moderate, in sustained remission F11.21 Exposure to blood-borne pathogen Z77.21
[2025-01-30 15:21] VITALS: PULSE 73; O2SAT 99; BMI 19.2
== END 2025-01-30 15:50 | disposition home or self-care (01) ==
LOC: HO.HID 14:59
PROVIDERS: PCP Family Medicine; Visit Provider Internal Medicine
DX: F11.21 Opioid dependence, in remission (principal); Z77.21 Contact with and (suspected) exposure to potentially hazardous body fluids
CPT/HCPCS: 99213

== ENCOUNTER 2025-04-08 13:05 | Outpatient (AMB) | payer OTHER, SELFPAY ==
[2025-04-08 13:11] VITALS: BP 118/68; PULSE 66; O2SAT 98; BMI 18.2
--- NOTE | 2025-04-08 13:11 | A.OFFVIS_ITS ---
Vital Signs 04/08/25 13:11 Height 5 ft 10 in Weight 127 lb BMI 18.2 BP 118/68 Pulse 66 Pulse Oximetry (%) 98 Intake Visit Reasons: MAT Allergies No Known Allergies Allergy (Verified 04/08/25 13:13) HPI Comments Details: She is doing well. She has no problems with opioids [facility] Medical History Hemorrhoid Exposure to blood-borne pathogen Opioid use disorder Surgical History H/O breast augmentation Social History Household Members: None Housing: Apartment Alcohol intake: current Alcohol intake frequency: holidays/special occasions only Patient Tobacco Use Status: Current someday Tobacco user Tobacco use type: Cigarette Cigarettes Per Day: 2 e-Cigarette/Vaping Use: Currently Using Review of Systems Const All systems reviewed & are unremarkable except as noted in HPI and below Physical Exam Vital Signs: Last Vital Signs Pulse 66 04/08/25 13:11 BP 118/68 04/08/25 13:11 Pulse Ox 98 04/08/25 13:11 BMI result Body Mass Index 18.2 Const General: cooperative Assessment & Plan Assessment & Plan (1) Opioid use disorder, moderate, in sustained remission: Comment: She is doing well. Code(s): F11.21 - Opioid dependence, in remission Category: Medical Plan Continue current medication. See as scheduled. Medications: New buprenorphine-naloxone 8-2 mg (Suboxone) 1 film sublingual DAILY 30 ea 1RF 30 days Coding Level of Care Code Est Pt Level 3 (09383) Diagnoses Opioid use disorder, moderate, in sustained remission F11.21
== END 2025-04-08 13:40 | disposition home or self-care (01) ==
LOC: HO.HCC 13:06
PROVIDERS: PCP Family Medicine; Visit Provider Internal Medicine
DX: F11.21 Opioid dependence, in remission (principal)
CPT/HCPCS: 99213

== ENCOUNTER 2025-06-07 12:55 | Outpatient (AMB) | payer OTHER, SELFPAY ==
[2025-06-07 13:01] VITALS: BP 110/70; PULSE 74; O2SAT 94
--- NOTE | 2025-06-07 13:01 | A.OFFVIS_ITS ---
Vital Signs 06/07/25 13:01 Height 5 ft 1 in BP 110/70 Pulse 74 Pulse Oximetry (%) 94 Intake Visit Reasons: MAT Allergies No Known Allergies Allergy (Verified 06/07/25 13:03) [facility] Medical History Hemorrhoid Exposure to blood-borne pathogen Opioid use disorder Surgical History H/O breast augmentation Social History Household Members: None Housing: Apartment Alcohol intake: current Alcohol intake frequency: holidays/special occasions only Patient Tobacco Use Status: Current someday Tobacco user Tobacco use type: Cigarette Cigarettes Per Day: 2 e-Cigarette/Vaping Use: Currently Using Physical Exam Vital Signs: Last Vital Signs Pulse 74 06/07/25 13:01 BP 110/70 06/07/25 13:01 Pulse Ox 94 06/07/25 13:01 Assessment & Plan Assessment & Plan Medications: New buprenorphine-naloxone 8-2 mg (Suboxone) 1 film sublingual DAILY 30 ea 0RF 30 days buprenorphine ER (Sublocade) 300 mg (1.5 mL) subcut QMONTH 30 days 1.5 mL 2RF buprenorphine ER (Sublocade) 300 mg (1.5 mL) subcut QMONTH 1.5 mL 2RF 30 days Coding
--- NOTE | 2025-06-07 13:45 | A.OFFVISCC_ITS ---
Vital Signs 06/07/25 13:01 Height 5 ft 1 in BP 110/70 Pulse 74 Pulse Oximetry (%) 94 Intake Visit Reasons: MAT Allergies No Known Allergies Allergy (Verified 06/07/25 13:03) HPI Comments Details: History of Present Illness The patient is a 34-year-old female presenting for management of opioid use disorder. She has been consistently on Suboxone 8/2 mg daily and reports tolerance to the medication apart from constipation, which became problematic last month. Attempts at laxative use were ineffective, necessitating manual disimpaction once. The patient denies psychological cravings for opiates and has abstained from use. A prior self-tapering attempt was unsuccessful due to withd beverly symptoms. The patient experienced stress related to the recent of a pet but does not require further psychological support. She is interested in transitioning to Sublocade to manage her opioid use disorder while alleviating constipation. Current vitals are stable; medication was last picked up on May 07. Review of Systems - Gastrointestinal: Reports constipation exacerbated last month. - Psychological: Denies psychological craving for opiates; reports stress from a pet's . - General: Denies any additional complaints. Physical Exam - Vitals- Stable. Results Plan Patient was informed and verbally consented to the use of an ambient scribe for clinic note documentation during this visit. 1. Opioid use, unspecified, uncomplicated F11.90 The patient will continue on Suboxone 8/2 mg daily with plans to transition to Sublocade 300 mg monthly to assist with tapering. We scheduled a follow-up for one month and will see her sooner if needed upon starting Sublocade. 2. Constipation Secondary To Suboxone She will continue using natural, as well as [id number]-[id number] remedies, for constipation. She is advised to follow up with her primary care provider if symptoms persist. Discussion Notes During our discussion, we addressed the patient's ongoing management of opioid use disorder with Suboxone, emphasizing her desire to transition to an injecta ble form, Sublocade, due to significant constipation. We reviewed the benefits and potential risks of switching to Sublocade, which may reduce constipation and facilitate tapering. I provided detailed instructions for continuing current constipation management strategies and discussed the importance of follow-up with her primary care physician to evaluate her gastrointestinal symptoms. Medical Decision Making The patient's opioid use disorder remains stable on Suboxone; however, the common side-effect of significant constipation necessitates a change in treatment modality. Sublocade, a monthly injectable form of buprenorphine, offers potential relief from constipation and a structured tapering option. Given her past difficulty with tapering, Sublocade was chosen to maintain stability while weaning off opioid agonists. Continuation of natural and OTC remedies for constipation will provide symptom support, with primary care coordination for further management. Patient Instructions - Continue taking Suboxone 8/2 mg daily until Sublocade is initiated. - Start Sublocade 300 mg as per prescribed schedule when available. - Use [id number]-lfs-[id number] remedies as needed for constipation. - Follow up with your primary care provider for further evaluation of constipation if it persists. - Return to the clinic in one month, or sooner if any issues arise after starting Sublocade. Physical Exam Vital Signs: Last Vital Signs Pulse 74 06/07/25 13:01 BP 110/70 06/07/25 13:01 Pulse Ox 94 06/07/25 13:01 PFSH Medical History Hemorrhoid Exposure to blood-borne pathogen Opioid use disorder Surgical History H/O breast augmentation Social History Household Members: None Housing: Apartment Alcohol intake: current Alcohol intake frequency: holidays/special occasions only Patient Tobacco Use Status: Current someday Tobacco user Tobacco use type: Cigarette Cigarettes Per Day: 2 e-Cigarette/Vaping Use: Currently Using Assessment & Plan Assessment & Plan (1) Opioid use disorder, moderate, in sustained remission: Comment: She is doing well. Code(s): F11.21 - Opioid dependence, in remission Category: Medical Plan: na Plan na Medications: New buprenorphine-naloxone 8-2 mg (Suboxone) 1 film sublingual DAILY 30 ea 0RF 30 days buprenorphine ER (Sublocade) 300 mg (1.5 mL) subcut QMONTH 30 days 1.5 mL 2RF buprenorphine ER (Sublocade) 300 mg (1.5 mL) subcut QMONTH 1.5 mL 2RF 30 days
== END 2025-06-07 13:24 | disposition home or self-care (01) ==
PROVIDERS: PCP Family Medicine; Visit Provider Internal Medicine
DX: F11.21 Opioid dependence, in remission (principal)
CPT/HCPCS: 99213

== ENCOUNTER 2025-07-31 15:00 | Outpatient (AMB) | payer OTHER, SELFPAY ==
--- NOTE | 2025-07-31 15:06 | MHC.OFFVIS ---
Vital Signs 07/31/25 15:07 BP 110/68 Pulse 70 Pulse Oximetry (%) 94 Intake Visit Reasons: mat visit Allergies No Known Allergies Allergy (Verified 07/31/25 15:07) HPI Comments Details: History of Present Illness The patient is a 34-year-old female presenting for management of opioid use disorder. She has been consistently on Suboxone 8/2 mg daily and reports tolerance to the medication apart from constipation, which became problematic last month. Attempts at laxative use were ineffective, necessitating manual disimpaction once. The patient denies psychological cravings for opiates and has abstained from use. A prior self-tapering attempt was unsuccessful due to withdrawal symptoms. The patient experienced stress related to the recent of a pet but does not require further psychological support. She is interested in transitioning to Sublocade or Brixadi to manage her opioid use disorder while alleviating constipation. Current vitals are stable; medication was last picked up on May 07. Review of Systems - Gastrointestinal: Reports constipation exacerbated last month. - Psychological: Denies psychological craving for opiates; reports stress from a pet's . - General: Denies any additional complaints. Physical Exam - Vitals- Stable. Results Plan Patient was informed and verbally consented to the use of an ambient scribe for clinic note documentation during this visit. 1. Opioid use, unspecified, uncomplicated F11.90 The patient will continue on Suboxone 8/2 mg daily with plans to transition to Sublocade 300 mg monthly to assist with tapering. We scheduled a follow-up for one month and will see her sooner if needed upon starting Sublocade. 2. Constipation Secondary To Suboxone She will continue using natural, as well as [id number]-[id number] remedies, for constipation. She is advised to follow up with her primary care provider if symptoms persist. Discussion Notes During our discussion, we addressed the patient's ongoing management of opioid use disorder with Suboxone, emphasizing her desire to transition to an injectable form, Sublocade, We reviewed the benefits and potential risks of switching to Sublocade or Brixadi and facilitate tapering. I provided detailed instructions for continuing current constipation management strategies and discussed the importance of follow-up with her primary care physician to evaluate her gastrointestinal symptoms. Medical Decision Making The patient's opioid use disorder remains stable on Suboxone but wishes to taper. Sublocade, a monthly injectable form of buprenorphine, offers potential relief from constipation and a structured tapering option. Given her past difficulty with tapering, Sublocade was chosen to maintain stability while weaning off opioid agonists. Continuation of natural and OTC remedies for constipation will provide symptom support, with primary care coordination for further management. Patient Instructions - Continue taking Suboxone 8/2 mg daily until Sublocade or Brixadi is initiated. - Start Sublocade 300 mg or Brixadi as per prescribed schedule when available. - Use [id number]-[id number] remedies as needed for constipation. - Follow up with your primary care provider for further evaluation of constipation if it persists. - Return to the clinic in one month, or sooner if any issues arise after starting Sublocade. [facility] Medical History Hemorrhoid Exposure to blood-borne pathogen Opioid use disorder Surgical History H/O breast augmentation Social History Household Members: None Housing: Apartment Alcohol intake: current Alcohol intake frequency: holidays/special occasions only Patient Tobacco Use Status: Current someday Tobacco user Tobacco use type: Cigarette Cigarettes Per Day: 2 e-Cigarette/Vaping Use: Currently Using Physical Exam Vital Signs: Last Vital Signs Pulse 70 07/31/25 15:07 BP 110/68 07/31/25 15:07 Pulse Ox 94 07/31/25 15:07 Assessment & Plan Assessment & Plan (1) Opioid use disorder, moderate, in sustained remission: Comment: She is doing well. Code(s): F11.21 - Opioid dependence, in remission Category: Medical Plan: as above Medications: New buprenorphine-naloxone 8-2 mg (Suboxone) 1 film sublingual DAILY 30 ea 0RF 30 days Coding Level of Care Code Est Pt Level 3 (27820) Diagnoses Opioid use disorder, moderate, in sustained remission F11.21
[2025-07-31 15:07] VITALS: BP 110/68; PULSE 70; O2SAT 94
== END 2025-07-31 15:43 | disposition home or self-care (01) ==
LOC: HO.HCC 15:00
PROVIDERS: PCP Family Medicine; Visit Provider Internal Medicine
DX: F11.21 Opioid dependence, in remission (principal)
CPT/HCPCS: 99213

== ENCOUNTER 2025-08-06 12:58 | Outpatient (AMB) | payer OTHER, SELFPAY ==
--- NOTE | 2025-08-06 13:07 | AM.OFFVISNUR ---
Vital Signs 08/06/25 13:12 BP 116/68 Pulse 78 Pulse Oximetry (%) 99 Intake Visit Reasons: Brixadi inj. Allergies No Known Allergies Allergy (Verified 08/06/25 13:13) Nursing Note Georgina presents today for first Brixadi 64 mg injection. Georgina is alert, oriented, cooperative with care and presents with an appropriate affect. Georgina reports doing well in sustained recovery and still seeing her therapist on a regular basis. Education provided regarding the injection and all questions answered. Contract signed and ID wallet card provided for Buprenrphine. Follow up in 4 weeks for the next injection. Office Meds buprenorphine 64 mg/0.18 mL solution,exten.rel.subcutaneous syringe Performing Provider: Malka Parikh MD Performing Location: [facility] Administered by: Kathrine Stein RN on 08/06/25 13:31 Dose Route Admin Location Dispensed Lot Number Expiration Date [facility] Copyright Clerk 64 mg subcut DIANNE 0.18 mL [id number] 01/23/27 [id number] [employer]. Total Dispensed Waste 0.18 mL 0 % Comments: Pt here for Brixadi 64 mg injection. Pt denies any concern with previous injections and tolerated injection well. Educated on signs and symptoms of infection and encouraged to call [facility] with any related questions or concerns, pt verbalized understanding. Follow-up scheduled in 4 weeks for next injection. Assessment & Plan Assessment & Plan Orders: Orders AMB Buprenorphine Injection - Patient Supplied Today F11.21 - Opioid dependence, in remission Coding
[2025-08-06 13:12] VITALS: BP 116/68; PULSE 78; O2SAT 99
== END 2025-08-06 13:42 | disposition home or self-care (01) ==
LOC: HO.HCC 12:58
PROVIDERS: PCP Family Medicine; Visit Provider Internal Medicine
DX: F11.21 Opioid dependence, in remission (principal)

== ENCOUNTER → 2025-08-06 12:58 | Outpatient (BNVA) | payer OTHER, SELFPAY | PROVIDERS: PCP Family Medicine; Visit Provider Internal Medicine | DX: F11.21 Opioid dependence, in remission (principal) | CPT/HCPCS: 96372; J0578 ==

== ENCOUNTER 2025-09-05 13:08 | Outpatient (AMB) | payer OTHER, SELFPAY ==
--- NOTE | 2025-09-05 13:17 | AM.OFFVISNUR ---
Vital Signs 09/05/25 13:18 BP 130/78 Pulse 78 Pulse Oximetry (%) 98 Intake Visit Reasons: Injection Allergies No Known Allergies Allergy (Verified 09/05/25 13:19) Nursing Note Georgina presents today for first Brixadi 64 mg injection. Georgina is alert, oriented, cooperative with care and presents with an appropriate affect. Georgina reports doing well with the first Brixadi last month; experienced some yawning and tearing yesterday- took a small piece of SL and felt better. Georgina is very satisfied with the injection effects, reports more consistancy on a daily basis with no ups and downs that used t be experienced on the SL films. Going to [place] with girlfriend for Jorge, in very good spirits. Follow up in 4 weeks for the next injection. Office Meds buprenorphine 64 mg/0.18 mL solution,exten.rel.subcutaneous syringe Performing Provider: Malka Parikh MD Performing Location: [facility] Administered by: Kathrine Stein RN on 09/05/25 13:37 Dose Route Admin Location Dispensed Lot Number Expiration Date [facility] [employer] [place] 64 mg subcut [place] 0.18 mL [id number] 01/23/27 96370-920-48 [employer]. Total Dispensed Waste 0.18 mL 0 % Comments: Pt here for Brixadi 64 mg injection. Pt denies any concern with previous injections and tolerated injection well. Educated on signs and symptoms of infection and encouraged to call [facility] with any related questions or concerns, pt verbalized understanding. Follow-up scheduled in 4 weeks for next injection. Assessment & Plan Assessment & Plan Orders: Orders AMB Buprenorphine Injection - Patient Supplied Today F11.21 - Opioid dependence, in remission Coding
[2025-09-05 13:18] VITALS: BP 130/78; PULSE 78; O2SAT 98
== END 2025-09-05 13:48 | disposition home or self-care (01) ==
LOC: HO.HCC 13:08
PROVIDERS: PCP Family Medicine
DX: F11.21 Opioid dependence, in remission (principal)

== ENCOUNTER → 2025-09-05 13:08 | Outpatient (BNVA) | payer OTHER, SELFPAY | PROVIDERS: PCP Family Medicine | DX: F11.21 Opioid dependence, in remission (principal) | CPT/HCPCS: 96372; J0578 ==